=== PATIENT | female | born 1960 | race Hispanic/Latino ===

== ENCOUNTER → 2017-12-07 | Day surgery (SDC) | payer MEDICARE ==
[~2017-12-07] MED LIST: ALPRAZOLAM0.25 MG PO; ASPIRIN EC81 MG PO; ATORVASTATIN CA20 MG PO; COREG12.5 MG PO; DOK100 MG PO; ELIQUIS; EPHEDRINE SULFATE INJ 50 MG/10 ML SYR ONE; FAMOTIDINE20 MG PO; FENTANYL CITRATE/PF 100MCG/2 ML INJ ONE; FOLIC ACID1 MG PO; FUROSEMIDE40 MG PO; GLIMEPIRIDE2 MG PO; HYDRALAZINE HCL25 MG PO; IRON159 MG PO; KIONEX15 GM/60 M; LEVOTHYROXINE75 MCG PO; LIDOCAINE HCL 2% LOCAL INJ 5 ML SDV VIAL INJ ONE; MIDAZOLAM HCL 2 MG/2 ML VIAL ONE; NIFEDIPINE ER30 M1 PO; NOVOLIN 70/30; PAROXETINE HCL20 MG PO; PREDNISOLO15 MG/5 ML PO; PROPOFOL IV EMULSION 10 MG/ML 50 ML VIAL ONE; RENVELA0.8 GM PO; SODIUM CHLORIDE 0.9% 500ML 500 ML ONE; SPIRONOLACTONE25 MG PO; TERAZOSIN HCL1 MG PO; VITAMIN C500 MG PO
--- OUTSIDE RECORDS SUMMARY | 2017-12-07 10:22 | XMS REPORT | Clinical Summary ---
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
[2017-12-07 11:28] LABS: BASOPHILS # (AUTO) 0.1 (0.0-0.1); BASOPHILS % 0.9 % (0.0-1.0); EOSINOPHILS # (AUTO) 0.2 (0.0-0.4); EOSINOPHILS % 2.7 % (0.0-6.0); HEMATOCRIT 33.4 % (34.2-44.1); HEMOGLOBIN 11.3 g/dL (12.0-16.0); LYMPHOCYTES # (AUTO) 1.6 (1.0-3.2); LYMPHOCYTES % 24.7 % (18.0-39.1); MEAN CORPUSCULAR HEMOGLOBIN 32.2 pg (28-32); MEAN CORPUSCULAR HGB CONC 33.8 g/dL (31-35); MEAN CORPUSCULAR VOLUME 95.2 fL (81-99); MONOCYTES # (AUTO) 0.6 (0.2-0.8); MONOCYTES % 8.3 % (4.4-11.3); NEUTROPHILS # (AUTO) 4.2 (2.1-6.9); NEUTROPHILS % 63.2 % (38.7-80.0); PLATELET COUNT 147 x10e3/uL (140-360); RED BLOOD COUNT 3.51 x10e6/uL (3.6-5.1); RED CELL DISTRIBUTION WIDTH 13.9 % (11.7-14.4)
[2017-12-07 11:52] LABS: ANION GAP 22.3 mmol/L (8-16); CREATININE, SERUM 7.43 mg/dL (0.57-1.11); POTASSIUM 5.3 mmol/L (3.5-5.1)
--- NOTE | 2017-12-07 14:58 | Operative Report ---
DATE OF PROCEDURE: December 07, 2017 REFERRING PHYSICIAN: Dr. Keyshawn Matute. PROCEDURE PERFORMED: Colonoscopy and polypectomy. INDICATIONS FOR COLONOSCOPY: Colorectal cancer screening. MEDICATION: Patient was done under MAC. Please see anesthesiologist's note. PROCEDURE: With the patient in the left lateral decubitus position, the flexible fiberoptic Olympus colonoscope was inserted into the rectum with ease and advanced all the way to the cecum. Mucosa overlying the cecum appeared to be within normal limits. The ileocecal valve was intubated, and the scope was advanced into the terminal ileum. Biopsies were obtained. The scope was then withdrawn back into the colon. It was then withdrawn slowly, and 4 polyps were snared from the ascending colon. The transverse appeared to be within normal limits. Three polyps were snared from the descending colon. Diverticulosis was noted to involve the distal descending and the sigmoid colon. The rectum appeared to be within normal limits. The scope was then retroflexed into the distal rectum and small internal hemorrhoids were noted, none of which was actively bleeding. The scope was then straightened out. It was subsequently withdrawn. Patient tolerated procedure well. IMPRESSION: 1. Ascending colon polyps times 4 snared. 2. Diverticulosis. 3. Descending colon polyps times 3 snared. 4. Internal hemorrhoids, none actively bleeding. PLAN: Follow up histology. Initiate high-fiber low-fat diet. Initiate high-fiber supplement. Patient will need a followup colonoscopy in 3 years. Job#: [id number] EV cc:KEYSHAWN MATUTE MD
== END | disposition home or self-care (01) ==
LOC: OR 10:20
PROVIDERS: ATTEND Internal Medicine Gastroenterology
DX: Z12.11 Encounter for screening for malignant neoplasm of colon (principal); D12.2 Benign neoplasm of ascending colon; D12.4 Benign neoplasm of descending colon; D12.5 Benign neoplasm of sigmoid colon; K57.30 Diverticulosis of large intestine without perforation or abscess without bleeding; K64.8 Other hemorrhoids; I25.10 Atherosclerotic heart disease of native coronary artery without angina pectoris; I25.2 Old myocardial infarction; E78.5 Hyperlipidemia, unspecified; E11.22 Type 2 diabetes mellitus with diabetic chronic kidney disease; I12.0 Hypertensive chronic kidney disease with stage 5 chronic kidney disease or end stage renal disease; N18.6 End stage renal disease; F41.9 Anxiety disorder, unspecified; Z01.810 Encounter for preprocedural cardiovascular examination; Z99.2 Dependence on renal dialysis; Z79.02 Long term (current) use of antithrombotics/antiplatelets
CPT/HCPCS: 36415; 45385; 80048; 82948; 85025; 88305; 93005; J2001; J2250; J7040

== ENCOUNTER 2019-02-19 04:32 | Emergency (ER) | payer MEDICARE ==
[~2019-02-19] VITALS: Ht 157.5 cm; Wt 83.0 kg
[~2019-02-19 04:32] MED LIST changes: -EPHEDRINE SULFATE INJ 50 MG/10 ML SYR ONE; -FENTANYL CITRATE/PF 100MCG/2 ML INJ ONE; -LIDOCAINE HCL 2% LOCAL INJ 5 ML SDV VIAL INJ ONE; -MIDAZOLAM HCL 2 MG/2 ML VIAL ONE; -PROPOFOL IV EMULSION 10 MG/ML 50 ML VIAL ONE; -SODIUM CHLORIDE 0.9% 500ML 500 ML ONE
--- OUTSIDE RECORDS SUMMARY | 2019-02-19 04:36 | XMS REPORT ---
Author Author [facility] Address Unknown Phone Unavailable Care Team Providers Care Head Animal Keeper Name Role Phone Unavailable Unavailable Problems This patient has no known problems. Allergies, Adverse Reactions, Alerts This patient has no known allergies or adverse reactions. Medications This patient has no known medications. Encounters Start Date/Time End Date/Time Encounter Type Admission Type Attending Clinicians Care Facility Care Department Encounter ID 2016-07-13 12:52:34 2016-07-13 12:52:34 Outpatient [facility] [id number]
--- OUTSIDE RECORDS SUMMARY | 2019-02-19 04:36 | XMS REPORT | Continuity of Care Document ---
Author Author [facility] Interface Address Unknown Phone Unavailable Problems Problem Status Onset Date Classification Date Reported Comments Source ACUTE CHEST PAIN, ACUTE HYPERKALEMIA, AC Active 05/28/2017 [facility] RESP DISTRESS Active 05/28/2017 [facility] ESRD on hemodialysis Active Problem 06/03/2017 [facility] DM (<span ID="[id number]">Confirmed</span>) Active Problem 06/03/2017 [facility] ESRD (<span ID="[id number]">Confirmed</span>) Active Problem 06/03/2017 [facility] ID, old Resolved Problem 06/03/2017 [facility] Hyperlipidemia Active Problem 06/03/2017 [facility] HTN (<span ID="[id number]">Confirmed</span>) Active Problem 06/03/2017 [facility] Hypothyroidism Active Problem 06/03/2017 [facility] Depression Active Problem 06/03/2017 [facility] CHEST PAIN, UNSPECIFIED Active [facility] HYPERKALEMIA Active [facility] ACUTE PANCREATITIS WITHOUT NECROSIS OR I Active [facility] Medications Medication Details Route Status Patient Instructions Ordering Provider Order Date Source Coumadin 10 mg, 1 tab, Route: PO, Drug form: TAB, Q5PM, Dosing Weight 96.545, kg, Start date: 05/31/17 17:00:00 CDT, Duration: 1 doses or times, Stop date: 05/31/17 17:00:00 CDTNotes: Nurse to ensure documentation of patient education per anticoagulation policy. Avoid large intake of vitamin-K containing foods diet. (Same As: Coumadin) WASTE: F/P - P Waste Black; E - P Waste Black Inactive 05/31/2017 [facility] pneumococcal 13-valent vaccine 0.5 mL, Route: IM, Drug Form: INJ, Daily, Start date: 05/31/17 12:00:00 CDT, Stop date: 05/31/17 21:00:00 CDTNotes: Shake well prior to use (Same as: Prevnar 13) Inactive 05/31/2017 [facility] Coumadin 10 mg, 1 tab, Route: PO, Drug form: TAB, Q5PM, Dosing Weight 96.545, kg, Start date: 05/30/17 17:00:00 CDT, Duration: 1 doses or times, Stop date: 05/30/17 17:00:00 CDTNotes: Nurse to ensure documentation of patient education per anticoagulation policy. Avoid large intake of vitamin-K containing foods diet. (Same As: Coumadin) WASTE: F/P - P Waste Black; E - P Waste Black No Longer Active 05/30/2017 [facility] Coumadin 10 mg, 1 tab, Route: PO, Drug form: TAB, Q5PM, Dosing Weight 96.545, kg, Start date: 05/29/17 17:00:00 CDT, Duration: 1 doses or times, Stop date: 05/29/17 17:00:00 CDTNotes: Nurse to ensure documentation of patient education per anticoagulation policy. Avoid large intake of vitamin-K containing foods diet. (Same As: Coumadin) WASTE: F/P - P Waste Black; E - P Waste Black Inactive 05/29/2017 [facility] Warfarin 2.5 mg, 1 tab, Route: PO, Drug form: TAB, Q5PM, Dosing Weight 96.545, kg, Start date: 05/29/17 17:00:00 CDT, Duration: 30 day, Stop date: 06/27/17 17:00:00 CDTNotes: Nurse to ensure documentation of patient education per anticoagulation policy. Avoid large intake of vitamin-K containing foods diet. (Same As: Coumadin) WASTE: F/P - P Waste Black; E - P Waste Black Inactive 05/29/2017 [facility] Insulin Lispro 5 unit, 0.05 mL, Route: SUB-Q, Drug form: SOLN, TID-Before Meals, Dosing Weight 96.545, kg, PRN Blood Glucose Results, Start date: 05/29/17 13:55:00 CDT, Duration: 30 day, Stop date: 06/28/17 13:54:0 0 CDTNotes: Roll in palms of hands gently; Do not shake `vigorously. (Same as: Humalog ) "Single Patient Use Only " WASTE: F/P - Black; E - Municipal Trash Bin Stable for 28 days at room temperature. Expires in days from Date No Longer Active 05/29/2017 [facility] Dextrose 50% Syringe 12.5 gm, 25 mL, Route: IVP, Drug Form: INJ, Dosing Weight 96.545, kg, PRN, PRN Blood Glucose Results, Start date: 05/29/17 13:55:00 CDT, Duration: 30 day, Stop date: 06/28/17 13:54:00 CDT No Longer Active 05/29/2017 [facility] Glucagon 1 mg, Route: IM, Drug form: PDR/INJ, PRN, Dosing Weight 96.545, kg, PRN Blood Glucose Results, Start date: 05/29/17 13:55:00 CDT, Duration: 30 day, Stop date: 06/28/17 13:54:00 CDT No Longer Active 05/29/2017 [facility] Hydralazine 10 mg, 0.5 mL, Route: IVP, Drug form: INJ, Q6H, Dosing Weight 96.545, kg, PRN Elevated BP, Start date: 05/29/17 12:21:00 CDT, Duration: 30 day, Stop date: 06/28/17 12:20:00 CDT, give if sbp greater t mensah 170mmhgNotes: (Same as: Apresoline) Push over 5 minutes No Longer Active 05/29/2017 [facility] NIFEdipine 30 mg oral tablet, extended release 30 mg, 1 tab, Route: PO, Drug form: ERTAB, Daily, Dosing Weight 96.545, kg, Start date: 05/29/17 9:00:00 CDT, Duration: 30 day, Stop date: 06/27/17 9:00:00 CDTNotes: (Same as: Adalat CC, Procardia XL) Give on empty stomach. Take 1 hour before or 2 hours after meal; "Avoid grapefruit and grapefruit juice". Do not crush No Longer Active 05/29/2017 [facility] NovoLOG 70/30 20 unit, Route: SUB-Q, Daily, Dosing Weight 96.545, kg, Start date: 05/29/17 9:00:00 CDT, Duration: 30 day, Stop date: 06/27/17 9:00:00 CDT No Longer Active 05/29/2017 [facility] atorvastatin 40 mg, 1 tab, Route: PO, Drug form: TAB, Daily, Dosing Weight 96.545, kg, Start date: 05/29/17 9:00:00 CDT, Duration: 30 day, Stop date: 06/27/17 9:00:00 CDTNotes: (Same as: Lipitor) No Longer Active 05/29/2017 [facility] aspirin 81 mg tablet, enteric coated 81 mg, 1 tab, Route: PO, Drug form: ECTAB, Daily, Dosing Weight 96.545, kg, Start date: 05/29/17 9:00:00 CDT, Duration: 30 day, Stop date: 06/27/17 9:00:00 CDTNotes: Do not crush or chew. (Same As: Ecotrin) No Longer Active 05/29/2017 [facility] Streptococcus pneumoniae serotype 1 capsular antigen diphtheria [id number] protein conjugate vaccine / Streptococcus pneumoniae serotype 14 capsular antigen diphtheria [id number] protein conjugate vaccine / Streptococcus pneumoniae serotype 18C capsular antigen d 0.5 mL, Route: IM, Drug Form: INJ, Daily, Start date: 05/29/17 9:00:00 CDT, Duration: 1 doses or times, Stop date: 05/29/17 9:00:00 CDTNotes: Shake well prior to use (Same as: Prevnar 13) No Longer Active 05/29/2017 [facility] Humalog Mix 75/25 20 unit, 0.2 mL, Route: SUB-Q, Drug form: INJ, QAM, Start date: 05/29/17 9:00:00 CDT, Duration: 30 day, Stop date: 06/27/17 9:00:00 CDTNotes: (Same as: Humalog Mix 75/25) "single patient use only" WASTE: F/P - Black; E - Municipal Trash Bin Roll in palms of hand gently; Do not shake. Inactive 05/29/2017 [facility] Nephro-Hermes Rx 1 tab, Route: PO, Drug Form: TAB, Dosing Weight 96.545, kg, Daily, Start date: 05/29/17 9:00:00 CDT, Duration: 30 day, Stop date: 06/27/17 9:00:00 CDTNotes: (Same as: Nephro-Hermes Rx and Diatx) Give with food. No Longer Active 05/29/2017 [facility] D5NS 1,000 mL 1,000 mL, Rate: 50 ml/hr, Infuse over: 20 hr, Route: IV, Dosing Weight 96.545 kg, Total Volume: 1,000, Start date: 05/29/17 5:00:00 CDT, Duration: 30 day, Stop date: 06/28/17 4:59:00 CDT No Longer Active 05/29/2017 [facility] d50 syringe 25 gm, 50 mL, Route: IV, Drug Form: INJ, Dosing Weight 96.545, kg, ONCE, Start date: 05/29/17 4:58:00 CDT, Stop date: 05/29/17 4:58:00 CDT Inactive 05/29/2017 [facility] NovoLOG 70/30 24 unit, Route: SUB-Q, Bedtime, Dosing Weight 96.545, kg, Start date: 05/28/17 21:00:00 CDT, Duration: 30 day, Stop date: 06/26/17 21:00:00 CDT Inactive 05/29/2017 [facility] carvedilol 25 mg, 2 tab, Route: PO, Drug form: TAB, BID, Dosing Weight 96.545, kg, Start date: 05/28/17 21:00:00 CDT, Duration: 30 day, Stop date: 06/27/17 9:00:00 CDTNotes: Give with food. (Same As: Coreg) No Longer Active 05/29/2017 [facility] Humalog Mix 75/25 24 unit, 0.24 mL, Route: SUB-Q, Drug form: INJ, Bedtime, Start date: 05/28/17 21:00:00 CDT, Duration: 30 day, Stop date: 06/26/17 21:00:00 CDTNotes: (Same as: Humalog Mix 75/25) "single patient use only" WASTE: F/P - Black; E - Municipal Trash Bin Roll in palms of hand gently; Do not shake. No Longer Active 05/29/2017 [facility] Glucotrol 10 mg, 1 tab, Route: PO, Drug form: TAB, BID, Start date: 05/28/17 17:00:00 CDT, Duration: 30 day, Stop date: 06/27/17 9:00:00 CDTNotes: (Same as: Glucotrol) 30 min before meals. No Longer Active 05/28/2017 [facility] glimepiride 4 mg, Route: PO, Drug form: TAB, BID, Dosing Weight 96.545, kg, Start date: 05/28/17 17:00:00 CDT, Duration: 30 day, Stop date: 06/27/17 9:00:00 CDT Inactive 05/28/2017 [facility] Renvela 3,200 mg, 4 tab, Route: PO, Drug form: TAB, TID, Dosing Weight 96.545, kg, Start date: 05/28/17 13:00:00 CDT, Duration: 30 day, Stop date: 06/27/17 9:00:00 CDTNotes: Same as: Renvela No Longer Active 05/28/2017 [facility] Lasix 100 mg, 10 mL, Route: IV, Drug form: INJ, ONCE, Dosing Weight 96.545, kg, Start date: 05/28/17 12:47:00 CDT, Stop date: 05/28/17 12:47:00 CDTNotes: (Same as: Lasix) MEDICATION WASTE Product Size: 100 mg Product Wasted: ___ mg Inactive 05/28/2017 [facility] Lasix 100 mg, Route: IV, ONCE, Dosing Weight 96.545, kg, Start date: 05/28/17 12:45:00 CDT, Stop date: 05/28/17 12:45:00 CDT Inactive 05/28/2017 [facility] Ondansetron 4 mg, 2 mL, Route: IVP, Drug form: INJ, Q6H, Dosing Weight 96.545, kg, PRN Nausea & Vomiting, Start date: 05/28/17 12:34:00 CDT, Duration: 30 day, Stop date: 06/27/17 12:33:00 CDTNotes: (Same as: Zofran) MEDICATION WASTE Product Size: 4 mg Product Wasted: ___ mg No Longer Active 05/28/2017 [facility] Morphine 2 mg, 1 mL, Route: IVP, Drug form: SOLN, Q4H, Dosing Weight 96.545, kg, PRN Pain Score 7-10, Start date: 05/28/17 12:34:00 CDT, Duration: 30 day, Stop date: 06/27/17 12:33:00 CDT No Longer Active 05/28/2017 [facility] Acetaminophen 650 mg, 2 tab, Route: PO, Drug form: TAB, Q4H, Dosing Weight 96.545, kg, PRN Pain 1-3/Temp > 100.4 F, Start date: 05/28/17 12:34:00 CDT, Duration: 30 day, Stop date: 06/27/17 12:33:00 CDTNotes: Do not exceed 4 gm/day. (Same as: Tylenol) No Longer Active 05/28/2017 [facility] Warfarin Sodium 10 MG Oral Tablet [Jantoven] 10 mg=1 tab, PO, Daily, # 30 tab, 0 Refill(s) Active 05/28/2017 [facility] sevelamer carbonate 800 MG Oral Tablet [Renvela] 4, PO, TID, 0 Refill(s) Active 05/28/2017 [facility] glimepiride 4 mg oral tablet 4 mg=1 tab, PO, BID, 0 Refill(s) Active 05/28/2017 [facility] atorvastatin 40 mg oral tablet 40 mg=1 tab, PO, Daily, 0 Refill(s) Active 05/28/2017 [facility] NovoLOG 70/30 24 unit, SUB-Q, Bedtime, 0 Refill(s) Active 05/28/2017 [facility] Docusate Sodium 100 MG Oral Capsule [Colace] 100 mg=1 cap, PO, Daily, 0 Refill(s) Active 05/28/2017 [facility] Warfarin Sodium 2.5 MG Oral Tablet [Jantoven] 2.5 mg=1 tab, PO, Daily, # 30 tab, 0 Refill(s) Active 05/28/2017 [facility] aspirin 81 mg tablet, enteric coated 81 mg=1 tab, PO, Daily, # 90 tab, 3 Refill(s) Active 05/28/2017 [facility] carvedilol 25 mg oral tablet 25 mg=1 tab, PO, BID, # 180 tab, 0 Refill(s) Active 05/28/2017 [facility] NIFEdipine 30 mg oral tablet, extended release 30 mg=1 tab, PO, Daily, # 30 tab, 0 Refill(s) Active 05/28/2017 [facility] Kayexalate 30 gm, 120 mL, Route: PO, Drug form: SUSP, ONCE, Dosing Weight 85.909, kg, Priority: STAT, Start date: 05/28/17 9:08:00 CDT, Stop date: 05/28/17 9:08:00 CDTNotes: (sodium polystyrene sulfonate 15 gm/60 ml ALINA) Inactive 05/28/2017 [facility] Albuterol 0.83 MG/ML Inhalant Solution 7.47 mg, 9 mL, Route: NEB, Drug form: SOLN, ONCE, Dosing Weight 85.909, kg, Priority: STAT, Start date: 05/28/17 8:58:00 CDT, Stop date: 05/28/17 8:58:00 CDTNotes: SEE RT DOCUMENTATION (Same as: Venkat) Inactive 05/28/2017 [facility] Clindamycin 600 mg, 50 mL, Route: IVPB, Drug form: INJ, ONCE, Dosing Weight 85.909, kg, Priority: STAT, Start date: 05/28/17 8:21:00 CDT, Duration: 1 doses or times, Stop date: 05/28/17 8:21:00 CDT, ABX Indicati on: Skin/Soft Tissue Infection Inactive 05/28/2017 [facility] Ondansetron 4 mg, 2 mL, Route: IVP, Drug form: INJ, ONCE, kg, Priority: STAT, Start date: 05/28/17 8:03:00 CDT, Stop date: 05/28/17 8:03:00 CDTNotes: (Same as: Iqra) MEDICATION WASTE Product Size: 4 mg Product Wasted: ___ mg Inactive 05/28/2017 [facility] Morphine 2 mg, 1 mL, Route: IVP, Drug form: SOLN, ONCE, kg, Priority: STAT, Start date: 05/28/17 8:03:00 CDT, Stop date: 05/28/17 8:03:00 CDT Inactive 05/28/2017 [facility] Nitroglycerin 0.4 mg, 1 tab, Route: SL, Drug form: TAB, Q5Min, kg, PRN Chest Pain, Start date: 05/28/17 8:03:00 CDT, Duration: 3 doses or times, Stop date: Limited # of timesNotes: (Same as:Nitroquick, Nitrostat) "Do Not Crush" Sublingual tablet No Longer Active 05/28/2017 [facility] Aspirin 324 mg, 4 tab, Route: PO, Drug form: CHEWTAB, ONCE, kg, Priority: STAT, Start date: 05/28/17 8:03:00 CDT, Stop date: 05/28/17 8:03:00 CDTNotes: Take with food. Inactive 05/28/2017 [facility] Saline Flush 0.9% 10 mL, Route: IVP, Drug Form: INJ, kg, PRN, PRN Line Flush, Start date: 05/28/17 8:03:00 CDT, Duration: 30 day, Stop date: 06/27/17 8:02:00 CDTNotes: (Same as: BD Posiflush) No Longer Active 05/28/2017 [facility] Sodium Chloride 0.9% IV (Sodium Chloride 0.9% (Bolus) IV) 500 mL, 500 ml/hr, Infuse Over: 1 hr, Route: IV, 500, Drug form: INJ, ONCE, Priority: STAT, kg, Start date: 05/28/17 8:03:00 CDT, Duration: 1 doses or times, Stop date: 05/28/17 8:03:00 CDT Inactive 05/28/2017 [facility] Allergies, Adverse Reactions, Alerts Substance Category Reaction Severity Reaction type Status Date Reported Comments Source Mircera<sup>1</sup> Assertion Drug allergy Active entered per ROSALINE Corrales's request [facility] Immunizations Immunization Date Given Site Status Last Updated Comments Source pneumococcal 13-valent vaccine 05/31/2017 Left Deltoid completed [facility] Results Order Name Results Value Reference Range Date Interpretation Comments Source HEMATOLOGY INR 1.79 0.85 - 1.17 05/31/2017 [facility] HEMATOLOGY PT 21.1 s 12.0 - 14.7 05/31/2017 [facility] CHEM PANEL eGFR 4 mL/min/1.73m2 05/30/2017 Result Comment: The eGFR is calculated using the CKD-EPI formula. In most young, healthy individuals the eGFR will be >90 mL/min/1.73m2. The eGFR declines with age. An eGFR of 60-89 may be normal in some populations, particularly the elderly, for whom the CKD-EPI formula has not been extensively validated. Use of the eGFR is not recommended in the following populations: Individuals with unstable creatinine concentrations, including patients and those with serious co-morbid conditions. Patients with extremes in muscle mass or diet. The data above are obtained from the National Kidney Disease Education Program (NKDEP) which additionally recommends that when the eGFR is used in patients with extremes of body mass index for purposes of drug dosing, the eGFR should be multiplied by the estimated BMI. [facility] CHEM PANEL Chloride Lvl 98 meq/L 95 - 109 05/30/2017 [facility] CHEM PANEL CO2 23 meq/L 24 - 32 05/30/2017 [facility] CHEM PANEL AGAP 18.9 meq/L 10.0 - 20.0 05/30/2017 [facility] CHEM PANEL Calcium Lvl 7.1 mg/dL 8.5 - 10.5 05/30/2017 [facility] CHEM PANEL Creatinine Lvl 10.00 mg/dL 0.50 - 1.40 05/30/2017 [facility] CHEM PANEL Sodium Lvl 135 meq/L 135 - 145 05/30/2017 [facility] CHEM PANEL Potassium Lvl 4.9 meq/L 3.5 - 5.1 05/30/2017 [facility] CHEM PANEL Glucose Lvl 85 mg/dL 70 - 99 05/30/2017 [facility] CHEM PANEL BUN 88 mg/dL 7 - 22 05/30/2017 [facility] HEMATOLOGY INR 1.97 0.85 - 1.17 05/30/2017 [facility] HEMATOLOGY PT 22.8 s 12.0 - 14.7 05/30/2017 [facility] HEMATOLOGY RDW 15.0 % 11.5 - 14.5 05/30/2017 [facility] HEMATOLOGY Platelet 122 K/CMM 133 - 450 05/30/2017 [facility] MPV 10.8 fL 7.4 - 10.4 05/30/2017 [facility] WBC 5.6 K/CMM 3.7 - 10.4 05/30/2017 [facility] RBC 3.22 M/CMM 4.20 - 5.40 05/30/2017 [facility] Hgb 10.4 g/dL 12.0 - 16.0 05/30/2017 [facility] HEMATOLOGY Hct 30.2 % 36.0 - 48.0 05/30/2017 [facility] HEMATOLOGY MCHC 34.4 g/dL 32.0 - 36.0 05/30/2017 [facility] HEMATOLOGY MCV 93.8 fL 80.0 - 98.0 05/30/2017 [facility] MCH 32.2 pg 27.0 - 31.0 05/30/2017 [facility] HEMATOLOGY Lymphocytes # 1.6 K/CMM 1.0 - 5.5 05/30/2017 [facility] HEMATOLOGY Eosinophils # 0.2 K/CMM 0.0 - 0.5 05/30/2017 [facility] HEMATOLOGY Monocytes # 0.4 K/CMM 0.0 - 0.8 05/30/2017 [facility] HEMATOLOGY Basophils # 0.1 K/CMM 0.0 - 0.2 05/30/2017 [facility] HEMATOLOGY Segs 58.9 % 45.0 - 75.0 05/30/2017 [facility] HEMATOLOGY Eosinophils 3.4 % 0.0 - 4.0 05/30/2017 [facility] Lymphocytes 28.3 % 20.0 - 40.0 05/30/2017 [facility] HEMATOLOGY Basophils 1.5 % 0.0 - 1.0 05/30/2017 [facility] Segs-Bands # 3.3 K/CMM 1.5 - 8.1 05/30/2017 [facility] Monocytes 7.9 % 2.0 - 12.0 05/30/2017 [facility] HEMATOLOGY INR 2.03 0.85 - 1.17 05/29/2017 [facility] PT 23.3 s 12.0 - 14.7 05/29/2017 [facility] CHEM PANEL Glucose Lvl 227 mg/dL 70 - 99 05/29/2017 [facility] CHEM PANEL BUN 68 mg/dL 7 - 22 05/29/2017 [facility] CHEM PANEL Creatinine Lvl 8.40 mg/dL 0.50 - 1.40 05/29/2017 [facility] CHEM PANEL Glucose Lvl 42 mg/dL 70 - 99 05/29/2017 Result Comment: Critical Result(s) called to janae at 05/29/2017 04:46 by_sol. Read back OK. [facility] CHEM PANEL eGFR 5 mL/min/1.73m2 05/29/2017 Result Comment: The eGFR is calculated using the CKD-EPI formula. In most young, healthy individuals the eGFR will be >90 mL/min/1.73m2. The eGFR declines with age. An eGFR of 60-89 may be normal in some populations, particularly the elderly, for whom the CKD-EPI formula has not been extensively validated. Use of the eGFR is not recommended in the following populations: Individuals with unstable creatinine concentrations, including patients and those with serious co-morbid conditions. Patients with extremes in muscle mass or diet. The data above are obtained from the National Kidney Disease Education Program (NKDEP) which additionally recommends that when the eGFR is used in patients with extremes of body mass index for purposes of drug dosing, the eGFR should be multiplied by the estimated BMI. [facility] CHEM PANEL Calcium Lvl 7.6 mg/dL 8.5 - 10.5 05/29/2017 [facility] CHEM PANEL CO2 25 meq/L 24 - 32 05/29/2017 [facility] CHEM PANEL AGAP 15.3 meq/L 10.0 - 20.0 05/29/2017 [facility] CHEM PANEL Sodium Lvl 137 meq/L 135 - 145 05/29/2017 [facility] CHEM PANEL Potassium Lvl 4.3 meq/L 3.5 - 5.1 05/29/2017 [facility] CHEM PANEL Chloride Lvl 101 meq/L 95 - 109 05/29/2017 [facility] HEMATOLOGY Lymphocytes 22.3 % 20.0 - 40.0 05/29/2017 [facility] HEMATOLOGY Segs 65.7 % 45.0 - 75.0 05/29/2017 [facility] HEMATOLOGY Eosinophils 3.2 % 0.0 - 4.0 05/29/2017 [facility] Monocytes 7.5 % 2.0 - 12.0 05/29/2017 [facility] HEMATOLOGY Basophils 1.3 % 0.0 - 1.0 05/29/2017 [facility] HEMATOLOGY Lymphocytes # 1.6 K/CMM 1.0 - 5.5 05/29/2017 [facility] HEMATOLOGY Segs-Bands # 4.6 K/CMM 1.5 - 8.1 05/29/2017 [facility] HEMATOLOGY Eosinophils # 0.2 K/CMM 0.0 - 0.5 05/29/2017 [facility] Monocytes # 0.5 K/CMM 0.0 - 0.8 05/29/2017 [facility] Basophils # 0.1 K/CMM 0.0 - 0.2 05/29/2017 [facility] MPV 10.3 fL 7.4 - 10.4 05/29/2017 [facility] HEMATOLOGY Platelet 138 K/CMM 133 - 450 05/29/2017 [facility] HEMATOLOGY MCHC 33.8 g/dL 32.0 - 36.0 05/29/2017 [facility] HEMATOLOGY Hct 32.0 % 36.0 - 48.0 05/29/2017 [facility] HEMATOLOGY MCH 32.0 pg 27.0 - 31.0 05/29/2017 [facility] HEMATOLOGY MCV 94.7 fL 80.0 - 98.0 05/29/2017 [facility] HEMATOLOGY RDW 15.5 % 11.5 - 14.5 05/29/2017 [facility] HEMATOLOGY WBC 7.0 K/CMM 3.7 - 10.4 05/29/2017 [facility] HEMATOLOGY RBC 3.38 M/CMM 4.20 - 5.40 05/29/2017 [facility] HEMATOLOGY Hgb 10.8 g/dL 12.0 - 16.0 05/29/2017 [facility] IMMUNOLOGY Hep Bs Ag Negative *NA* (05/28/17 6:39 PM) Negative 05/28/2017 [facility] CARDIAC ENZYMES CK MB 6.3 ng/mL 0.5 - 3.6 05/28/2017 [facility] CARDIAC ENZYMES CK MB Index 2.0 0.0 - 2.5 05/28/2017 [facility] CARDIAC ENZYMES Total CK 320 unit/L 12 - 05/28/2017 [facility] CARDIAC ENZYMES Troponin-I null 0.00 - 0.40 05/28/2017 [facility] CARDIAC ENZYMES Troponin-I null 0.00 - 0.40 05/28/2017 [facility] CARDIAC ENZYMES Total CK 337 unit/L 12 - 05/28/2017 [facility] CARDIAC ENZYMES CK MB 6.7 ng/mL 0.5 - 3.6 05/28/2017 [facility] CARDIAC ENZYMES CK MB Index 2.0 0.0 - 2.5 05/28/2017 [facility] CHEM PANEL Lactic Acid Lvl 0.8 mMol/L 0.5 - 2.2 05/28/2017 [facility] CARDIAC ENZYMES Total CK 251 unit/L 12 - 05/28/2017 [facility] CARDIAC ENZYMES Troponin-I null 0.00 - 0.40 05/28/2017 [facility] CARDIAC ENZYMES CK MB 4.5 ng/mL 0.5 - 3.6 05/28/2017 [facility] CARDIAC ENZYMES BNP 570 pg/mL <=100 pg/mL 05/28/2017 [facility] CARDIAC ENZYMES CK MB Index 1.8 0.0 - 2.5 05/28/2017 [facility] CHEM PANEL eGFR 4 mL/min/1.73m2 05/28/2017 Result Comment: The eGFR is calculated using the CKD-EPI formula. In most young, healthy individuals the eGFR will be >90 mL/min/1.73m2. The eGFR declines with age. An eGFR of 60-89 may be normal in some populations, particularly the elderly, for whom the CKD-EPI formula has not been extensively validated. Use of the eGFR is not recommended in the following populations: Individuals with unstable creatinine concentrations, including patients and those with serious co-morbid conditions. Patients with extremes in muscle mass or diet. The data above are obtained from the National Kidney Disease Education Program (NKDEP) which additionally recommends that when the eGFR is used in patients with extremes of body mass index for purposes of drug dosing, the eGFR should be multiplied by the estimated BMI. [facility] CHEM PANEL AGAP 18.8 meq/L 10.0 - 20.0 05/28/2017 [facility] CHEM PANEL B/C Ratio 10 6 - 25 05/28/2017 [facility] CHEM PANEL Globulin 3.8 g/dL 2.7 - 4.2 05/28/2017 [facility] CHEM PANEL A/G Ratio 0.9 0.7 - 1.6 05/28/2017 [facility] CHEM PANEL Sodium Lvl 136 meq/L 135 - 145 05/28/2017 [facility] CHEM PANEL Potassium Lvl 5.8 meq/L 3.5 - 5.1 05/28/2017 [facility] CHEM PANEL Alk Phos 82 unit/L 39 - 136 05/28/2017 [facility] CHEM PANEL Bili Total 0.2 mg/dL 0.2 - 1.3 05/28/2017 [facility] CHEM PANEL AST 17 unit/L 0 - 37 05/28/2017 [facility] CHEM PANEL Chloride Lvl 102 meq/L 95 - 109 05/28/2017 [facility] CHEM PANEL CO2 21 meq/L 24 - 32 05/28/2017 [facility] CHEM PANEL ALT 21 unit/L 0 - 65 05/28/2017 [facility] CHEM PANEL Albumin Lvl 3.4 g/dL 3.5 - 5.0 05/28/2017 [facility] CHEM PANEL Calcium Lvl 7.6 mg/dL 8.5 - 10.5 05/28/2017 [facility] CHEM PANEL Total Protein 7.2 g/dL 6.4 - 8.4 05/28/2017 [facility] CHEM PANEL Creatinine Lvl 9.70 mg/dL 0.50 - 1.40 05/28/2017 [facility] CHEM PANEL BUN 93 mg/dL 7 - 22 05/28/2017 [facility] CHEM PANEL Magnesium Lvl 2.5 mg/dL 1.8 - 2.4 05/28/2017 [facility] CHEM PANEL Lipase Lvl 581 unit/L 73 - 393 05/28/2017 [facility] HEMATOLOGY PTT 33.9 s 22.9 - 35.8 05/28/2017 [facility] HEMATOLOGY WBC 8.7 K/CMM 3.7 - 10.4 05/28/2017 [facility] HEMATOLOGY RBC 3.53 M/CMM 4.20 - 5.40 05/28/2017 [facility] Hgb 11.3 g/dL 12.0 - 16.0 05/28/2017 [facility] MPV 10.7 fL 7.4 - 10.4 05/28/2017 [facility] Platelet 150 K/CMM 133 - 450 05/28/2017 [facility] RDW 15.3 % 11.5 - 14.5 05/28/2017 [facility] MCV 95.9 fL 80.0 - 98.0 05/28/2017 [facility] MCHC 33.3 g/dL 32.0 - 36.0 05/28/2017 [facility] MCH 32.0 pg 27.0 - 31.0 05/28/2017 [facility] [facility] Hct 33.9 % 36.0 - 48.0 05/28/2017 [facility] Segs 77.5 % 45.0 - 75.0 05/28/2017 [facility] HEMATOLOGY Lymphocytes 13.6 % 20.0 - 40.0 05/28/2017 [facility] HEMATOLOGY Monocytes 5.7 % 2.0 - 12.0 05/28/2017 [facility] HEMATOLOGY Eosinophils 2.3 % 0.0 - 4.0 05/28/2017 [facility] HEMATOLOGY Eosinophils # 0.2 K/CMM 0.0 - 0.5 05/28/2017 [facility] HEMATOLOGY Monocytes # 0.5 K/CMM 0.0 - 0.8 05/28/2017 [facility] HEMATOLOGY Basophils # 0.1 K/CMM 0.0 - 0.2 05/28/2017 [facility] HEMATOLOGY Basophils 0.9 % 0.0 - 1.0 05/28/2017 [facility] HEMATOLOGY Segs-Bands # 6.7 K/CMM 1.5 - 8.1 05/28/2017 [facility] HEMATOLOGY Lymphocytes # 1.2 K/CMM 1.0 - 5.5 05/28/2017 [facility] TOXICOLOGY Digoxin Lvl 0.1 ng/mL 0.8 - 2.0 05/28/2017 [facility] Chest 1view DX Chest 1view DX Study: Chest 1view DX portable 05/28/2017 0802 hours Clinical Indication: - chest pain; Comparison: None FINDINGS: Image projection is lordotic. The cardiac silhouette is enlarged. The mediastinum is not remarkable. The lungs are well-expanded and appear clear. No vascular congestion or pleural effusion is seen. IMPRESSION: No acute abnormality. SL: [id number] 05/28/2017 - - Read by: Wang Olivarez MD Dictated Date/time: 05/28/17 08:25 Electronically Signed by: Wang Olivarez MD 05/28/17 08:26 FINAL REPORT [facility] Vital Signs Vital Sign Value Date Comments Source Systolic (mm Hg) 151 05/31/2017 [facility] Diastolic (mm Hg) 73 05/31/2017 [facility] Respitory Rate 18 05/31/2017 [facility] Temperature Oral (F) 97.8 F 05/31/2017 [facility] Heart Rate 65 05/31/2017 [facility] Systolic (mm Hg) 161 05/31/2017 [facility] Diastolic (mm Hg) 77 05/31/2017 [facility] Respitory Rate 18 05/31/2017 [facility] Heart Rate 66 05/31/2017 [facility] Temperature Oral (F) 97.7 F 05/31/2017 [facility] Heart Rate 76 05/31/2017 [facility] Temperature Oral (F) 98.2 F 05/31/2017 [facility] Systolic (mm Hg) 126 05/31/2017 [facility] Diastolic (mm Hg) 76 05/31/2017 [facility] Respitory Rate 18 05/31/2017 [facility] BMI Calculated 38.93 05/28/2017 [facility] Weight 96.545 05/28/2017 [facility] Height 157.48 cm 05/28/2017 [facility] Weight 85.909 05/28/2017 [facility] Height 154.94 cm 05/28/2017 [facility] BMI Calculated 35.79 05/28/2017 [facility] Encounters Location Location Details Encounter Type Encounter Number Reason For Visit Attending Provider ADM Date DC Date Status Source [facility] Observation [id number] Fly Quezadaoly 05/28/2017 05/31/2017 [facility] Procedures Procedure Code Date Perfomer Comments Source Abdominal hysterectomy [id number] [facility] Appendectomy [id number] [facility] Caesarean section [id number] [facility]
--- OUTSIDE RECORDS SUMMARY | 2019-02-19 04:36 | XMS REPORT | Summary of Care ---
Author Author [facility] Organization [facility] Address Unknown Phone Unavailable Encounter HQ Sarah(ASHWIN) [phone] Date(s): 05/28/17 - 05/31/17 [facility] [address] [place] [address]- [phone] Discharge Disposition: Home or Self Care Attending Physician: Fly Antonio MD Admitting Physician: Fly Antonio MD Vital Signs 1 2 3 Most recent to oldest [Reference Range]: 157.48 cm (05/28/17 10:40 AM) 154.94 cm (05/28/17 8:01 AM) Height 97.8 DegF (05/31/17 11:31 AM) 97.7 DegF (05/31/17 7:50 AM) 98.2 DegF (05/31/17 4:31 AM) Temperature Oral [96.4-99.1 DegF] 151/73 mmHg *HI* (05/31/17 11:31 AM) 161/77 mmHg *HI* (05/31/17 7:50 AM) 126/76 mmHg (05/31/17 4:31 AM) Blood Pressure [90-140/60-90 mmHg] 18 BRMIN (05/31/17 11:31 AM) 18 BRMIN (05/31/17 7:50 AM) 18 BRMIN (05/31/17 4:31 AM) Respiratory Rate [14-20 BRMIN] 65 bpm (05/31/17 11:31 AM) 66 bpm (05/31/17 7:50 AM) 76 bpm (05/31/17 4:31 AM) Peripheral Pulse Rate [60-100 bpm] 96.545 kg (05/28/17 10:40 AM) 85.909 kg (05/28/17 8:01 AM) Weight 38.93 m2 (05/28/17 10:40 AM) 35.79 m2 (05/28/17 8:01 AM) Body Mass Index Problem List Condition Effective Dates Status Health Status Informant ESRD on Active hemodialysis(Confirm ed) DM (diabetes Active mellitus)(Confirmed) ESRD (end stage Active renal disease)(Confirmed) [place], old(Confirmed) Resolved Hyperlipidemia(Confi Active rmed) HTN Active (hypertension)(Confi rmed) Hypothyroidism(Confi Active rmed) Depression(Confirmed Active ) Allergies, Adverse Reactions, Alerts Substance Reaction Severity Status Mircera1 Active 1entered per ROSALINE Corrales's request Medications acetaminophen 650 mg, 2 tab, Route: PO, Drug form: TAB, Q4H, Dosing Weight 96.545, kg, PRN Mariaa n 1-3/Temp > 100.4 F, Start date: 05/28/17 12:34:00 CDT, Duration: 30 day, Stop date: 06/27/17 12:33:00 CDT Notes: Do not exceed 4 gm/day. (Same as: Tylenol) Start Date: 05/28/17 Stop Date: 05/31/17 Status: Discontinued albuterol 0.083% inhalation solution 7.47 mg, 9 mL, Route: NEB, Drug form: SOLN, ONCE, Dosing Weight 85.909, kg, Prio rity: STAT, Start date: 05/28/17 8:58:00 CDT, Stop date: 05/28/17 8:58:00 CDT Notes: SEE RT DOCUMENTATION (Same as: Proventil) Start Date: 05/28/17 Stop Date: 05/28/17 Status: Completed aspirin 324 mg, 4 tab, Route: PO, Drug form: CHEWTAB, ONCE, kg, Priority: STAT, Start da te: 05/28/17 8:03:00 CDT, Stop date: 05/28/17 8:03:00 CDT Notes: Take with food. Start Date: 05/28/17 Stop Date: 05/28/17 Status: Completed aspirin 81 mg tablet, enteric coated 81 mg, 1 tab, Route: PO, Drug form: ECTAB, Daily, Dosing Weight 96.545, kg, Star t date: 05/29/17 9:00:00 CDT, Duration: 30 day, Stop date: 06/27/17 9:00:00 CDT Notes: Do not crush or chew.(Same As: Ecotrin) Start Date: 05/29/17 Stop Date: 05/31/17 Status: Discontinued aspirin 81 mg tablet, enteric coated 81 mg=1 tab, PO, Daily, # 90 tab, 3 Refill(s) Start Date: 05/28/17 Status: Ordered atorvastatin 40 mg, 1 tab, Route: PO, Drug form: TAB, Daily, Dosing Weight 96.545, kg, Start date: 05/29/17 9:00:00 CDT, Duration: 30 day, Stop date: 06/27/17 9:00:00 CDT Notes: (Same as: Lipitor) Start Date: 05/29/17 Stop Date: 05/31/17 Status: Discontinued atorvastatin 40 mg oral tablet 40 mg=1 tab, PO, Daily, 0 Refill(s) Start Date: 05/28/17 Status: Ordered carvedilol 25 mg, 2 tab, Route: PO, Drug form: TAB, BID, Dosing Weight 96.545, kg, Start da te: 05/28/17 21:00:00 CDT, Duration: 30 day, Stop date: 06/27/17 9:00:00 CDT Notes: Give with food. (Same As: Coreg) Start Date: 05/28/17 Stop Date: 05/31/17 Status: Discontinued carvedilol 25 mg oral tablet 25 mg=1 tab, PO, BID, # 180 tab, 0 Refill(s) Start Date: 05/28/17 Status: Ordered clindamycin 600 mg, 50 mL, Route: IVPB, Drug form: INJ, ONCE, Dosing Weight 85.909, kg, Prio rity: STAT, Start date: 05/28/17 8:21:00 CDT, Duration: 1 doses or times, Stop d ate: 05/28/17 8:21:00 CDT, ABX Indication: Skin/Soft Tissue Infection Start Date: 05/28/17 Stop Date: 05/28/17 Status: Completed Colace 100 mg oral capsule 100 mg=1 cap, PO, Daily, 0 Refill(s) Start Date: 05/28/17 Status: Ordered Coumadin 10 mg, 1 tab, Route: PO, Drug form: TAB, Q5PM, Dosing Weight 96.545, kg, Start d ate: 05/30/17 17:00:00 CDT, Duration: 1 doses or times, Stop date: 05/30/17 17:0 0:00 CDT Notes: Nurse to ensure documentation of patient education per anticoagulation po licy.Avoid large intake of vitamin-K containing foods diet.(Same As: Coumadin)NV SONI: F/P - P Waste Black; E - P Waste Black Start Date: 05/30/17 Stop Date: 05/29/17 Status: Deleted Coumadin 10 mg, 1 tab, Route: PO, Drug form: TAB, Q5PM, Dosing Weight 96.545, kg, Start d ate: 05/29/17 17:00:00 CDT, Duration: 1 doses or times, Stop date: 05/29/17 17:0 0:00 CDT Notes: Nurse to ensure documentation of patient education per anticoagulation po licy.Avoid large intake of vitamin-K containing foods diet.(Same As: Coumadin)NV SONI: F/P - P Waste Black; E - P Waste Black Start Date: 05/29/17 Stop Date: 05/29/17 Status: Completed Coumadin 10 mg, 1 tab, Route: PO, Drug form: TAB, Q5PM, Dosing Weight 96.545, kg, Start d ate: 05/31/17 17:00:00 CDT, Duration: 1 doses or times, Stop date: 05/31/17 17:0 0:00 CDT Notes: Nurse to ensure documentation of patient education per anticoagulation po licy.Avoid large intake of vitamin-K containing foods diet.(Same As: Coumadin)NV SONI: F/P - P Waste Black; E - P Waste Black Start Date: 05/31/17 Stop Date: 05/31/17 Status: Canceled d50 syringe 25 gm, 50 mL, Route: IV, Drug Form: INJ, Dosing Weight 96.545, kg, ONCE, Start d ate: 05/29/17 4:58:00 CDT, Stop date: 05/29/17 4:58:00 CDT Start Date: 05/29/17 Stop Date: 05/29/17 Status: Completed D5NS 1,000 mL 1,000 mL, Rate: 50 ml/hr, Infuse over: 20 hr, Route: IV, Dosing Weight 96.545 kg , Total Volume: 1,000, Start date: 05/29/17 5:00:00 CDT, Duration: 30 day, Stop date: 06/28/17 4:59:00 CDT Start Date: 05/29/17 Stop Date: 05/31/17 Status: Discontinued Dextrose 50% Syringe 12.5 gm, 25 mL, Route: IVP, Drug Form: INJ, Dosing Weight 96.545, kg, PRN, PRN B lood Glucose Results, Start date: 05/29/17 13:55:00 CDT, Duration: 30 day, Stop date: 06/28/17 13:54:00 CDT Start Date: 05/29/17 Stop Date: 05/31/17 Status: Discontinued Dextrose 50% Syringe 25 gm, 50 mL, Route: IVP, Drug Form: INJ, Dosing Weight 96.545, kg, PRN, PRN Blo od Glucose Results, Start date: 05/29/17 13:55:00 CDT, Duration: 30 day, Stop da te: 06/28/17 13:54:00 CDT Start Date: 05/29/17 Stop Date: 05/31/17 Status: Discontinued glimepiride 4 mg, Route: PO, Drug form: TAB, BID, Dosing Weight 96.545, kg, Start date: 05/03 04/17 17:00:00 CDT, Duration: 30 day, Stop date: 06/27/17 9:00:00 CDT Start Date: 05/28/17 Stop Date: 05/28/17 Status: Deleted glimepiride 4 mg oral tablet 4 mg=1 tab, PO, BID, 0 Refill(s) Start Date: 05/28/17 Status: Ordered glucagon 1 mg, Route: IM, Drug form: PDR/INJ, PRN, Dosing Weight 96.545, kg, PRN Blood Gl ucose Results, Start date: 05/29/17 13:55:00 CDT, Duration: 30 day, Stop date: 0 06/28/17 13:54:00 CDT Start Date: 05/29/17 Stop Date: 05/31/17 Status: Discontinued Glucotrol 10 mg, 1 tab, Route: PO, Drug form: TAB, BID, Start date: 05/28/17 17:00:00 CDT, Duration: 30 day, Stop date: 06/27/17 9:00:00 CDT Notes: (Same as: Glucotrol) 30 min before meals. Start Date: 05/28/17 Stop Date: 05/29/17 Status: Discontinued Humalog Mix 75/25 24 unit, 0.24 mL, Route: SUB-Q, Drug form: INJ, Bedtime, Start date: 05/28/17 21 :00:00 CDT, Duration: 30 day, Stop date: 06/26/17 21:00:00 CDT Notes: (Same as: Humalog Mix 75/25)"single patient use only"WASTE: F/P - Black; E - Municipal Trash Bin Roll in palms of hand gently; Do not shake. Start Date: 05/28/17 Stop Date: 05/29/17 Status: Discontinued Humalog Mix 75/25 20 unit, 0.2 mL, Route: SUB-Q, Drug form: INJ, QAM, Start date: 05/29/17 9:00:00 CDT, Duration: 30 day, Stop date: 06/27/17 9:00:00 CDT Notes: (Same as: Humalog Mix 75/25)"single patient use only"WASTE: F/P - Black; E - Municipal Trash Bin Roll in palms of hand gently; Do not shake. Start Date: 05/29/17 Stop Date: 05/29/17 Status: Canceled hydrALAZINE 10 mg, 0.5 mL, Route: IVP, Drug form: INJ, Q6H, Dosing Weight 96.545, kg, PRN El evated BP, Start date: 05/29/17 12:21:00 CDT, Duration: 30 day, Stop date: 06/28 12:20:00 CDT, give if sbp greater than 170mmhg Notes: (Same as: Apresoline)Push over 5 minutes Start Date: 05/29/17 Stop Date: 05/31/17 Status: Discontinued insulin lispro 5 unit, 0.05 mL, Route: SUB-Q, Drug form: SOLN, TID-Before Meals, Dosing Weight 96.545, kg, PRN Blood Glucose Results, Start date: 05/29/17 13:55:00 CDT, Durati on: 30 day, Stop date: 06/28/17 13:54:00 CDT Notes: Roll in palms of hands gently; Do not shake `vigorously. (Same as: Humal og )"Single Patient Use Only "WASTE: F/P - Black; E - Municipal Trash Bin Stabl e for 28 days at room temperature.Expires in days from Date Start Date: 05/29/17 Stop Date: 05/31/17 Status: Discontinued insulin lispro 1 unit, 0.01 mL, Route: SUB-Q, Drug form: SOLN, TID-Before Meals, Dosing Weight 96.545, kg, PRN Blood Glucose Results, Start date: 05/29/17 13:55:00 CDT, Durati on: 30 day, Stop date: 06/28/17 13:54:00 CDT Notes: Roll in palms of hands gently; Do not shake `vigorously. (Same as: Humal og )"Single Patient Use Only "WASTE: F/P - Black; E - Municipal Trash Bin Stabl e for 28 days at room temperature.Expires in days from Date Start Date: 05/29/17 Stop Date: 05/31/17 Status: Discontinued insulin lispro 2 unit, 0.02 mL, Route: SUB-Q, Drug form: SOLN, TID-Before Meals, Dosing Weight 96.545, kg, PRN Blood Glucose Results, Start date: 05/29/17 13:55:00 CDT, Durati on: 30 day, Stop date: 06/28/17 13:54:00 CDT Notes: Roll in palms of hands gently; Do not shake `vigorously. (Same as: Humal og )"Single Patient Use Only "WASTE: F/P - Black; E - Municipal Trash Bin Stabl e for 28 days at room temperature.Expires in days from Date Start Date: 05/29/17 Stop Date: 05/31/17 Status: Discontinued insulin lispro 4 unit, 0.04 mL, Route: SUB-Q, Drug form: SOLN, TID-Before Meals, Dosing Weight 96.545, kg, PRN Blood Glucose Results, Start date: 05/29/17 13:55:00 CDT, Durati on: 30 day, Stop date: 06/28/17 13:54:00 CDT Notes: Roll in palms of hands gently; Do not shake `vigorously. (Same as: Radha limon )"Single Patient Use Only "WASTE: F/P - Black; E - Municipal Trash Bin Stabl e for 28 days at room temperature.Expires in days from Date Start Date: 05/29/17 Stop Date: 05/31/17 Status: Discontinued insulin lispro 3 unit, 0.03 mL, Route: SUB-Q, Drug form: SOLN, TID-Before Meals, Dosing Weight 96.545, kg, PRN Blood Glucose Results, Start date: 05/29/17 13:55:00 CDT, Durati on: 30 day, Stop date: 06/28/17 13:54:00 CDT Notes: Roll in palms of hands gently; Do not shake `vigorously. (Same as: Radha limon )"Single Patient Use Only "WASTE: F/P - Black; E - Municipal Trash Bin Stabl e for 28 days at room temperature.Expires in days from Date Start Date: 05/29/17 Stop Date: 05/31/17 Status: Discontinued Jantoven 10 mg oral tablet 10 mg=1 tab, PO, Daily, # 30 tab, 0 Refill(s) Start Date: 05/28/17 Status: Ordered Jantoven 2.5 mg oral tablet 2.5 mg=1 tab, PO, Daily, # 30 tab, 0 Refill(s) Start Date: 05/28/17 Status: Ordered Kayexalate 30 gm, 120 mL, Route: PO, Drug form: SUSP, ONCE, Dosing Weight 85.909, kg, Prior ity: STAT, Start date: 05/28/17 9:08:00 CDT, Stop date: 05/28/17 9:08:00 CDT Notes: (sodium polystyrene sulfonate 15 gm/60 ml ALINA) Start Date: 05/28/17 Stop Date: 05/28/17 Status: Completed Lasix 100 mg, 10 mL, Route: IV, Drug form: INJ, ONCE, Dosing Weight 96.545, kg, Start date: 05/28/17 12:47:00 CDT, Stop date: 05/28/17 12:47:00 CDT Notes: (Same as: Lasix) MEDICATION WASTE Product [facility] ___ mg Start Date: 05/28/17 Stop Date: 05/28/17 Status: Completed Lasix 100 mg, Route: IV, ONCE, Dosing Weight 96.545, kg, Start date: 05/28/17 12:45:00 CDT, Stop date: 05/28/17 12:45:00 CDT Start Date: 05/28/17 Stop Date: 05/28/17 Status: Discontinued morphine Sulfate 2 mg, 1 mL, Route: IVP, Drug form: SOLN, Q4H, Dosing Weight 96.545, kg, PRN Pain Score 7-10, Start date: 05/28/17 12:34:00 CDT, Duration: 30 day, Stop date: 12:33:00 CDT Start Date: 05/28/17 Stop Date: 05/31/17 Status: Discontinued morphine Sulfate 2 mg, 1 mL, Route: IVP, Drug form: SOLN, ONCE, kg, Priority: STAT, Start date: 0 05/28/17 8:03:00 CDT, Stop date: 05/28/17 8:03:00 CDT Start Date: 05/28/17 Stop Date: 05/28/17 Status: Completed Nephro-Hermes Rx 1 tab, Route: PO, Drug Form: TAB, Dosing Weight 96.545, kg, Daily, Start date: 0 05/29/17 9:00:00 CDT, Duration: 30 day, Stop date: 06/27/17 9:00:00 CDT Notes: (Same as: Nephro-Hermes Rx and Diatx) Give with food. Start Date: 05/29/17 Stop Date: 05/31/17 Status: Discontinued NIFEdipine 30 mg oral tablet, extended release 30 mg, 1 tab, Route: PO, Drug form: ERTAB, Daily, Dosing Weight 96.545, kg, Star t date: 05/29/17 9:00:00 CDT, Duration: 30 day, Stop date: 06/27/17 9:00:00 CDT Notes: (Same as: Adalat CC, Procardia XL) Give on empty stomach. Take 1 hour be fore or 2 hours after meal; "Avoid grapefruit and grapefruit juice". Do not cru sh Start Date: 05/29/17 Stop Date: 05/31/17 Status: Discontinued NIFEdipine 30 mg oral tablet, extended release 30 mg=1 tab, PO, Daily, # 30 tab, 0 Refill(s) Start Date: 05/28/17 Status: Ordered nitroglycerin 0.4 mg, 1 tab, Route: SL, Drug form: TAB, Q5Min, kg, PRN Chest Pain, Start date: 05/28/17 8:03:00 CDT, Duration: 3 doses or times, Stop date: Limited # of times Notes: (Same as:Nitroquick, Nitrostat)"Do Not Crush" Sublingual tablet Start Date: 05/28/17 Stop Date: 05/31/17 Status: Discontinued NovoLOG 70/30 20 unit, Route: SUB-Q, Daily, Dosing Weight 96.545, kg, Start date: 05/29/17 9:0 0:00 CDT, Duration: 30 day, Stop date: 06/27/17 9:00:00 CDT Start Date: 05/29/17 Stop Date: 05/28/17 Status: Deleted NovoLOG 70/30 24 unit, Route: SUB-Q, Bedtime, Dosing Weight 96.545, kg, Start date: 05/28/17 2 1:00:00 CDT, Duration: 30 day, Stop date: 06/26/17 21:00:00 CDT Start Date: 05/28/17 Stop Date: 05/28/17 Status: Deleted NovoLOG 70/30 24 unit, SUB-Q, Bedtime, 0 Refill(s) Start Date: 05/28/17 Status: Ordered NovoLOG 70/30 20 unit, SUB-Q, Daily, 0 Refill(s) Start Date: 05/28/17 Status: Ordered ondansetron 4 mg, 2 mL, Route: IVP, Drug form: INJ, Q6H, Dosing Weight 96.545, kg, PRN Nause a & Vomiting, Start date: 05/28/17 12:34:00 CDT, Duration: 30 day, Stop date: 06/27/17 12:33:00 CDT Notes: (Same as: Iqra) MEDICATION WASTE Product Size: 4 mgProduct Was tina: ___ mg Start Date: 05/28/17 Stop Date: 05/31/17 Status: Discontinued ondansetron 4 mg, 2 mL, Route: IVP, Drug form: INJ, ONCE, kg, Priority: STAT, Start date: 8:03:00 CDT, Stop date: 05/28/17 8:03:00 CDT Notes: (Same as: Iqra) MEDICATION WASTE Product Size: 4 mgProduct Was tina: ___ mg Start Date: 05/28/17 Stop Date: 05/28/17 Status: Completed pneumococcal 13-valent vaccine 0.5 mL, Route: IM, Drug Form: INJ, Daily, Start date: 05/31/17 12:00:00 CDT, Sto p date: 05/31/17 21:00:00 CDT Notes: Shake well prior to use (Same as: Sam Baugh) Start Date: 05/31/17 Stop Date: 05/31/17 Status: Discontinued pneumococcal 13-valent vaccine 0.5 mL, Route: IM, Drug Form: INJ, Daily, Start date: 05/29/17 9:00:00 CDT, Dura tion: 1 doses or times, Stop date: 05/29/17 9:00:00 CDT Notes: Shake well prior to use (Same as: Sam Baugh) Start Date: 05/29/17 Stop Date: 05/31/17 Status: Deleted Renvela 3,200 mg, 4 tab, Route: PO, Drug form: TAB, TID, Dosing Weight 96.545, kg, Start date: 05/28/17 13:00:00 CDT, Duration: 30 day, Stop date: 06/27/17 9:00:00 CDT Notes: Same as: Renvela Start Date: 05/28/17 Stop Date: 05/31/17 Status: Discontinued Renvela 800 mg oral tablet 4, PO, TID, 0 Refill(s) Start Date: 05/28/17 Status: Ordered Saline Flush 0.9% 10 mL, Route: IVP, Drug Form: INJ, kg, PRN, PRN Line Flush, Start date: 05/28/17 8:03:00 CDT, Duration: 30 day, Stop date: 06/27/17 8:02:00 CDT Notes: (Same as: BD Posiflush) Start Date: 05/28/17 Stop Date: 05/31/17 Status: Discontinued Sodium Chloride 0.9% IV (Sodium Chloride 0.9% (Bolus) IV) 500 mL, 500 ml/hr, Infuse Over: 1 hr, Route: IV, 500, Drug form: INJ, ONCE, Prio rity: STAT, kg, Start date: 05/28/17 8:03:00 CDT, Duration: 1 doses or times, St op date: 05/28/17 8:03:00 CDT Start Date: 05/28/17 Stop Date: 05/28/17 Status: Completed warfarin 2.5 mg, 1 tab, Route: PO, Drug form: TAB, Q5PM, Dosing Weight 96.545, kg, Start date: 05/29/17 17:00:00 CDT, Duration: 30 day, Stop date: 06/27/17 17:00:00 CDT Notes: Nurse to ensure documentation of patient education per anticoagulation po licy.Avoid large intake of vitamin-K containing foods diet.(Same As: Coumadin)WA SONI: F/P - P Waste Black; E - P Waste Black Start Date: 05/29/17 Stop Date: 05/29/17 Status: Canceled Results ELECTROLYTES 1 2 3 Most recent to oldest [Reference Range]: 135 mEq/L (05/30/17 6:03 AM) 137 mEq/L (05/29/17 3:32 AM) 136 mEq/L (05/28/17 8:18 AM) Sodium Lvl [135-145 mEq/L] 4.9 mEq/L (05/30/17 6:03 AM) 4.3 mEq/L (05/29/17 3:32 AM) 5.8 mEq/L *HI* (05/28/17 8:18 AM) Potassium Lvl [3.5-5.1 mEq/L] 98 mEq/L (05/30/17 6:03 AM) 101 mEq/L (05/29/17 3:32 AM) 102 mEq/L (05/28/17 8:18 AM) Chloride Lvl [95-109 mEq/L] 23 mEq/L *LOW* (05/30/17 6:03 AM) 25 mEq/L (05/29/17 3:32 AM) 21 mEq/L *LOW* (05/28/17 8:18 AM) CO2 [24-32 mEq/L] 18.9 mEq/L (05/30/17 6:03 AM) 15.3 mEq/L (05/29/17 3:32 AM) 18.8 mEq/L (05/28/17 8:18 AM) AGAP [10.0-20.0 mEq/L] CHEM PANEL 1 2 3 Most recent to oldest [Reference Range]: 10.00 mg/dL *HI* (05/30/17 6:03 AM) 8.40 mg/dL *HI* (05/29/17 3:32 AM) 9.70 mg/dL *HI* (05/28/17 8:18 AM) Creatinine Lvl [0.50-1.40 mg/dL] 4 mL/min/1.73m2 1 *NA* (05/30/17 6:03 AM) 5 mL/min/1.73m2 2 *NA* (05/29/17 3:32 AM) 4 mL/min/1.73m2 3 *NA* (05/28/17 8:18 AM) eGFR 88 mg/dL *HI* (05/30/17 6:03 AM) 68 mg/dL *HI* (05/29/17 3:32 AM) 93 mg/dL *HI* (05/28/17 8:18 AM) BUN [7-22 mg/dL] 10 (05/28/17 8:18 AM) B/C Ratio [6-25] 85 mg/dL (05/30/17 6:03 AM) 227 mg/dL *HI* (05/29/17 6:10 AM) 42 mg/dL 4 *CRIT* (05/29/17 3:32 AM) Glucose Lvl [70-99 mg/dL] 7.2 g/dL (05/28/17 8:18 AM) Total Protein [6.4-8.4 g/dL] 3.4 g/dL *LOW* (05/28/17 8:18 AM) Albumin Lvl [3.5-5.0 g/dL] 3.8 g/dL (05/28/17 8:18 AM) Globulin [2.7-4.2 g/dL] 0.9 (05/28/17 8:18 AM) A/G Ratio [0.7-1.6] 7.1 mg/dL *LOW* (05/30/17 6:03 AM) 7.6 mg/dL *LOW* (05/29/17 3:32 AM) 7.6 mg/dL *LOW* (05/28/17 8:18 AM) Calcium Lvl [8.5-10.5 mg/dL] 2.5 mg/dL *HI* (05/28/17 8:18 AM) Magnesium Lvl [1.8-2.4 mg/dL] 21 unit/L (05/28/17 8:18 AM) ALT [0-65 unit/L] 17 unit/L (05/28/17 8:18 AM) AST [0-37 unit/L] 82 unit/L (05/28/17 8:18 AM) Alk Phos [39-136 unit/L] 0.2 mg/dL (05/28/17 8:18 AM) Bili Total [0.2-1.3 mg/dL] 581 unit/L *HI* (05/28/17 8:18 AM) Lipase Lvl [73-393 unit/L] 0.8 mMol/L (05/28/17 9:07 AM) Lactic Acid Lvl [0.5-2.2 mMol/L] 1Result Comment: The eGFR is calculated using the [...] from the National Kid[employer] Disease Education Program ( NKDEP) which additionally recommends that when the eGFR is used in patients with extremes of body mass index for purposes of drug dosing, the eGFR should be mul tiplied by the estimated BMI. 2Result Comment: The eGFR is calculated using the [...] from the National Kid[employer] Education Program ( NKDEP) which additionally recommends that when the eGFR is used in patients with extremes of body mass index for purposes of drug dosing, the eGFR should be mul tiplied by the estimated BMI. 3Result Comment: The eGFR is calculated using the [...] from the National Kid[employer] Disease Education Program ( NKDEP) which additionally recommends that when the eGFR is used in patients with extremes of body mass index for purposes of drug dosing, the eGFR should be mul tiplied by the estimated BMI. 4Result Comment: Critical Result(s) called to janae at 05/29/2017 04:46 by_sol. Read back OK. CARDIAC ENZYMES 1 2 3 Most recent to oldest [Reference Range]: 320 unit/L *HI* (05/28/17 5:55 PM) 337 unit/L *HI* (05/28/17 12:39 PM) 251 unit/L *HI* (05/28/17 8:18 AM) Total CK [12-191 unit/L] 6.3 ng/mL *HI* (05/28/17 5:55 PM) 6.7 ng/mL *HI* (05/28/17 12:39 PM) 4.5 ng/mL *HI* (05/28/17 8:18 AM) CK MB [0.5-3.6 ng/mL] 2.0 (05/28/17 5:55 PM) 2.0 (05/28/17 12:39 PM) 1.8 (05/28/17 8:18 AM) CK MB Index [0.0-2.5] <0.02 ng/mL (05/28/17 5:55 PM) <0.02 ng/mL (05/28/17 12:39 PM) <0.02 ng/mL (05/28/17 8:18 AM) Troponin-I [0.00-0.40 ng/mL] 570 pg/mL *HI* (05/28/17 8:18 AM) BNP [<=100 pg/mL] TOXICOLOGY 1 2 3 Most recent to oldest [Reference Range]: 0.1 ng/mL *LOW* (05/28/17 8:18 AM) Digoxin Lvl [0.8-2.0 ng/mL] IMMUNOLOGY 1 2 3 Most recent to oldest [Reference Range]: Negative *NA* (05/28/17 6:39 PM) Hep Bs Ag [Negative] HEMATOLOGY 1 2 3 Most recent to oldest [Reference Range]: 5.6 K/CMM (05/30/17 6:03 AM) 7.0 K/CMM (05/29/17 3:32 AM) 8.7 K/CMM (05/28/17 8:18 AM) WBC [3.7-10.4 K/CMM] 3.22 M/CMM *LOW* (05/30/17 6:03 AM) 3.38 M/CMM *LOW* (05/29/17 3:32 AM) 3.53 M/CMM *LOW* (05/28/17 8:18 AM) RBC [4.20-5.40 M/CMM] 10.4 g/dL *LOW* (05/30/17 6:03 AM) 10.8 g/dL *LOW* (05/29/17 3:32 AM) 11.3 g/dL *LOW* (05/28/17 8:18 AM) Hgb [12.0-16.0 g/dL] 30.2 % *LOW* (05/30/17 6:03 AM) 32.0 % *LOW* (05/29/17 3:32 AM) 33.9 % *LOW* (05/28/17 8:18 AM) Hct [36.0-48.0 %] 93.8 fL (05/30/17 6:03 AM) 94.7 fL (05/29/17 3:32 AM) 95.9 fL (05/28/17 8:18 AM) MCV [80.0-98.0 fL] 32.2 pg *HI* (05/30/17 6:03 AM) 32.0 pg *HI* (05/29/17 3:32 AM) 32.0 pg *HI* (05/28/17 8:18 AM) MCH [27.0-31.0 pg] 34.4 g/dL (05/30/17 6:03 AM) 33.8 g/dL (05/29/17 3:32 AM) 33.3 g/dL (05/28/17 8:18 AM) MCHC [32.0-36.0 g/dL] 15.0 % *HI* (05/30/17 6:03 AM) 15.5 % *HI* (05/29/17 3:32 AM) 15.3 % *HI* (05/28/17 8:18 AM) RDW [11.5-14.5 %] 122 K/CMM *LOW* (05/30/17 6:03 AM) 138 K/CMM (05/29/17 3:32 AM) 150 K/CMM (05/28/17 8:18 AM) Platelet [133-450 K/CMM] 10.8 fL *HI* (05/30/17 6:03 AM) 10.3 fL (05/29/17 3:32 AM) 10.7 fL *HI* (05/28/17 8:18 AM) MPV [7.4-10.4 fL] 58.9 % (05/30/17 6:03 AM) 65.7 % (05/29/17 3:32 AM) 77.5 % *HI* (05/28/17 8:18 AM) Segs [45.0-75.0 %] 28.3 % (05/30/17 6:03 AM) 22.3 % (05/29/17 3:32 AM) 13.6 % *LOW* (05/28/17 8:18 AM) Lymphocytes [20.0-40.0 %] 7.9 % (05/30/17 6:03 AM) 7.5 % (05/29/17 3:32 AM) 5.7 % (05/28/17 8:18 AM) Monocytes [2.0-12.0 %] 3.4 % (05/30/17 6:03 AM) 3.2 % (05/29/17 3:32 AM) 2.3 % (05/28/17 8:18 AM) Eosinophils [0.0-4.0 %] 1.5 % *HI* (05/30/17 6:03 AM) 1.3 % *HI* (05/29/17 3:32 AM) 0.9 % (05/28/17 8:18 AM) Basophils [0.0-1.0 %] 3.3 K/CMM (05/30/17 6:03 AM) 4.6 K/CMM (05/29/17 3:32 AM) 6.7 K/CMM (05/28/17 8:18 AM) Segs-Bands # [1.5-8.1 K/CMM] 1.6 K/CMM (05/30/17 6:03 AM) 1.6 K/CMM (05/29/17 3:32 AM) 1.2 K/CMM (05/28/17 8:18 AM) Lymphocytes # [1.0-5.5 K/CMM] 0.4 K/CMM (05/30/17 6:03 AM) 0.5 K/CMM (05/29/17 3:32 AM) 0.5 K/CMM (05/28/17 8:18 AM) Monocytes # [0.0-0.8 K/CMM] 0.2 K/CMM (05/30/17 6:03 AM) 0.2 K/CMM (05/29/17 3:32 AM) 0.2 K/CMM (05/28/17 8:18 AM) Eosinophils # [0.0-0.5 K/CMM] 0.1 K/CMM (05/30/17 6:03 AM) 0.1 K/CMM (05/29/17 3:32 AM) 0.1 K/CMM (05/28/17 8:18 AM) Basophils # [0.0-0.2 K/CMM] 21.1 seconds *HI* (05/31/17 4:37 AM) 22.8 seconds *HI* (05/30/17 6:03 AM) 23.3 seconds *HI* (05/29/17 5:02 PM) PT [12.0-14.7 seconds] 1.79 *HI* (05/31/17 4:37 AM) 1.97 *HI* (05/30/17 6:03 AM) 2.03 *HI* (05/29/17 5:02 PM) INR [0.85-1.17] 33.9 seconds (05/28/17 8:18 AM) PTT [22.9-35.8 seconds] Immunizations Given and Recorded Vaccine Date Status Refusal Reason pneumococcal 13-valent vaccine 05/31/17 Given Procedures Procedure Date Related Diagnosis Body Site Abdominal hysterectomy Appendectomy Caesarean section Social History Social History Type Response Substance Abuse Use: None. Alcohol Never Smoking Status Former smoker; Previous treatment: None; Ready to change: No; Concerns about tobacco use in household: No; Exposure to Tobacco Smoke None; Cigarette Smoking Last 365 Days No; Reg Smoking Cessation Counseling No Assessment and Plan Extracted from: Title: Clinical Document Author: Moreno Mace MD Date: 05/30/17 Progress Note - Daily [facility] Completed: May, 22:36 by Moreno Mace MD RM: 119 - 1D, SE [id number] (: 1958) [facility] Service: Internal Medicine Reason for Admission: ACUTE CHEST PAIN, ACUTE HYPERKALEMIA, ACUTE PANCREATITI Working DRG: None Documented Code status: None Specified=FULL CODECurrent diet: Isolation: None Documented Allergies: Mircera SUBJECTIVE --denies having any chest pain. 24hr Labs 05/30 2042 Glucose PKR315 H 05/30 1614 Glucose PRK833 H 05/30 0745 Glucose POC88 05/30 0603 Glucose Lvl85 BUN88 H Creatinine Lvl10.00 H Sodium Rha980 Potassium Lvl4.9 Chloride Lvl98 CO223 L AGAP18.9 Calcium Lvl7.1 L eGFR4 WBC5.6 RBC3.22 L Hgb10.4 L Hct30.2 L MCV93.8 MCH32.2 H MCHC34.4 RDW15.0 H Xmtliuzo051 L MPV10.8 H Segs58.9 Monocytes7.9 Vqstnsijdlv91.3 Eosinophils3.4 Basophils1.5 H Segs-Bands #3.3 Lymphocytes #1.6 Monocytes #0.4 Eosinophils #0.2 Basophils #0.1 PT22.8 H INR1.97 H Rose still necessary (Yes/No): Line still necessary (Yes/No): VitalsTmp(F)[id number] 05/30 20:0098.543913/700055--- 05/30 16:0098.030725/926938--- 05/30 11:2098.390597/81--97--- 05/30 00:0097.137164/04265------ 05/29 20:0099.254792/[id number]--- Gen: AAOX3, NAD Neuro: motor 5/5 in upper extremities, CN II-XII grossly intact. CV: RRR, S1 and S2, Left AVF site looks fine. Lung: CTA bilaterally, no crackles or wheezing heard. Abdomen: Non-distended, non-tender, no rebound or gaurding, bowel sounds are present. : no supraputic region tenderness. No CVA region tenderness. EXT: no peripheral edema. Skin: no rashes or other skin color changes. 24 Hr Tmax: 98.9F (37.17c) at 05/30 16:00Vital Signs are the last 5 in the past 48 hours. DateWt(kg)Wt(lb)Ht(cm)Ht(in)Method 05/28 (initial) 85.91 [id number] 61.00Estimated I&ORecordInOutBal 4hr Tot 2040 0 2040 4hr Tot 190 0 1900 Medications (21) Active Scheduled Meds (6): 05/29/17 NIFEdipine (NIFEdipine 30 mg oral tablet, extended release) 30 mg PO Daily 05/29/17 aspirin (aspirin 81 mg tablet, enteric coated) 81 mg PO Daily 05/29/17 atorvastatin 40 mg PO Daily 05/28/17 carvedilol 25 mg PO BID 05/29/17 multivitamin (Nephro-Hermes Rx) 1 tab PO Daily 05/28/17 sevelamer (Renvela) 3,200 mg PO TID Unscheduled Meds: None PRN Meds (14): 05/29/17 Dextrose 50% in Water IV (Dextrose 50% Syringe) 12.5 gm IVP PRN 05/29/17 Dextrose 50% in Water IV (Dextrose 50% Syringe) 25 gm IVP PRN 05/28/17 acetaminophen 650 mg PO Q4H 05/29/17 glucagon 1 mg IM PRN 05/29/17 hydrALAZINE 10 mg IVP Q6H 05/29/17 insulin lispro 1 unit SUB-Q TID-Before Meals 05/29/17 insulin lispro 2 unit SUB-Q TID-Before Meals 05/29/17 insulin lispro 3 unit SUB-Q TID-Before Meals 05/29/17 insulin lispro 4 unit SUB-Q TID-Before Meals 05/29/17 insulin lispro 5 unit SUB-Q TID-Before Meals 05/28/17 morphine Sulfate 2 mg IVP Q4H 05/28/17 nitroglycerin 0.4 mg SL Q5Min 05/28/17 ondansetron 4 mg IVP Q6H 05/28/17 sodium chloride (Saline Flush 0.9%) 10 mL IVP PRN One Time Meds: None Continuous Infusions (1): 05/29/17 D5NS 1,000 mL 1,000 mL 50 ml/hr ASSESSMENT & PLAN Atypical chest pain Troponin I negative 3 over past 24 hours on 05/28. Symptoms have resolved after HD. Acute hyperkalemia Underwent HD yesterday 05/30 Hyperkalemia resolved today. Metabolic acidosis Bicarbonate of 23, improved with HD. End-stage renal disease Getting scheduled HD since admission. Nephrology consulted. Coronary artery disease with myocardial infarction 3 months ago Cardiomyopathy and cardiomegaly seen on chest x-ray. Get echocardiogram. Atrial fibrillation (?) Possibly due to A fib (patient do not know). INR of 1.97. Continue home dose of coumadin for now. Rate controlled. Hypertension Better in 150s since starting nifedipine. Continue the same. Continue nifedIpine and Coreg for now. Insulin-dependent diabetes Blood glucose in the 80s. Continue scheduled Humalog and lispro. DVT prophylaxis: On Coumadin. 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 Extracted from: Title: Clinical Document Author: Fly Antonio MD Date: 05/28/17 full H&P dictated, #[id number] date/time of encounter: 05/28/2017 12:00
[2019-02-19] MEDS ORDERED: KETOROLAC TROMETHAMINE 30 MG/ML VIAL IV STA (04:51)
[2019-02-19] MEDS ORDERED: SODIUM CHLORIDE 0.9% 500ML 500 ML IV ONE (05:00)
[2019-02-19 05:39] LABS: BASOPHILS # (AUTO) 0.1 (0.0-0.1); BASOPHILS % 0.9 % (0.0-1.0); EOSINOPHILS # (AUTO) 0.3 (0.0-0.4); EOSINOPHILS % 4.1 % (0.0-6.0); HEMATOCRIT 27.2 % (34.2-44.1); HEMOGLOBIN 9.1 g/dL (12.0-16.0); LYMPHOCYTES % 15.5 % (18.0-39.1); MEAN CORPUSCULAR HEMOGLOBIN 32.3 pg (28-32); MEAN CORPUSCULAR HGB CONC 33.5 g/dL (31-35); MEAN CORPUSCULAR VOLUME 96.5 fL (81-99); MONOCYTES # (AUTO) 0.6 (0.2-0.8); MONOCYTES % 9.7 % (4.4-11.3); NEUTROPHILS # (AUTO) 4.6 (2.1-6.9); NEUTROPHILS % 69.3 % (38.7-80.0); PLATELET COUNT 147 x10e3/uL (140-360); RED BLOOD COUNT 2.82 x10e6/uL (3.6-5.1); RED CELL DISTRIBUTION WIDTH 13.8 % (11.7-14.4)
[2019-02-19 05:52] LABS: INR 0.9; PROTHROMBIN TIME 12.6 seconds (11.9-14.5)
[2019-02-19 05:53] LABS: PARTIAL THROMBOPLASTIN TIME 33.7 seconds (23.8-35.5)
[2019-02-19 06:02] LABS: CREATINE KINASE MB 3.2 ng/mL (0-5.0)
--- NOTE | 2019-02-19 06:02 | Diagnostic Imaging Report ---
EXAMINATION: Head CT without contrast. HISTORY:Headache. COMPARISON:None. TECHNIQUE: Multidetector axial images were obtained from the foramen magnum to the vertex without contrast. The images were reconstructed using brain and bone algorithms. Thin section brain images were reformatted into coronal and sagittal planes. Dose modulation, iterative reconstruction, and/or weight based adjustment of the mA/kV was utilized to reduce the radiation dose to as low as reasonably achievable. Intravenous contrast: None IMAGE QUALITY: Acceptable. FINDINGS: Skull/scalp: No lytic or blastic. lesions. No surgical changes. Parenchyma: No abnormal density. No acute hemorrhage, mass or acute major vascular territorial infarct. Arteries: No density suggestive of thrombosis. Dural sinuses: No abnormal density suggestive of thrombosis. Ventricles: No hydrocephalus or displacement. Extra-axial spaces: No abnormal density. Brain volume: Normal for age. Craniocervical junction: No mass, Chiari malformation, or basilar invagination. Sella: No mass. Paranasal/mastoid sinuses: Small polyp/retention cyst in right sphenoid sinus. IMPRESSION: No intracranial abnormality. Signed by: Dr. Miriam Hawk M.D. on 02/19/2019 5:59 AM
[2019-02-19 06:04] LABS: ALBUMIN 3.7 g/dL (3.5-5.0); ALBUMIN/GLOBULIN RATIO 1.1 (0.8-2.0); ANION GAP 17.9 mmol/L (8-16); CALCIUM 9.3 mg/dL (8.4-10.2); CREATININE, SERUM 10.93 mg/dL (0.57-1.11); POTASSIUM 4.9 mmol/L (3.5-5.1)
--- NOTE | 2019-02-19 06:46 | Diagnostic Imaging Report ---
Examination: Single AP view of the chest. COMPARISON: None. INDICATION: Hypotensive DISCUSSION: Lines/tubes: None. Lungs: Central venous congestion. Pleura: No pleural effusion or pneumothorax. Heart and mediastinum: Mild cardiomegaly. Bones and soft tissues: No acute bony abnormalities. IMPRESSION: Cardiomegaly with central venous congestion Signed by: Dr. Viral Brannon M.D. on 02/19/2019 6:43 AM
== END 2019-02-19 07:25 | disposition home or self-care (01) ==
LOC: ER 04:32
DX: G44.211 Episodic tension-type headache, intractable (principal); E11.22 Type 2 diabetes mellitus with diabetic chronic kidney disease; I12.0 Hypertensive chronic kidney disease with stage 5 chronic kidney disease or end stage renal disease; N18.6 End stage renal disease; Z99.2 Dependence on renal dialysis; Z79.84 Long term (current) use of oral hypoglycemic drugs; Z79.01 Long term (current) use of anticoagulants; E78.5 Hyperlipidemia, unspecified; D64.9 Anemia, unspecified; H54.40 Blindness, one eye, unspecified eye
CPT/HCPCS: 36415; 70450; 71045; 80053; 82550; 82553; 82948; 84484; 85025; 85610; 85730; 93005; 99283; J1885; J7040